=== PATIENT | female | born 1970 | race African-American/Black ===

== ENCOUNTER 2022-03-07 13:53 | Emergency (ER) | payer MEDICAID ==
[~2022-03-07] VITALS: Ht 165.1 cm; Wt 106.0 kg
[2022-03-07 14:10] VITALS: BP 130/98
== END 2022-03-07 17:52 | disposition home or self-care (01) ==
LOC: ER 14:09
DX: J06.9 Acute upper respiratory infection, unspecified (principal); I10 Essential (primary) hypertension; Z98.51 Tubal ligation status; Z20.822 Contact with and (suspected) exposure to COVID-19
CPT/HCPCS: 87426; 99283; C9803